=== PATIENT | male | born 1990 ===

== ENCOUNTER 2016-07-02 21:40 | Emergency (ER) | payer SELFPAY ==
[2016-07-02 21:54] VITALS: BP 137/96
[2016-07-02] MEDS ORDERED: BOOSTRIX IM ONE (23:59)
[2016-07-02] MEDS ORDERED: CLEOCIN IM ONE (23:59)
[2016-07-02] MEDS ORDERED: PERCOCET 5/325 PO ONE (23:59)
--- NOTE | 2016-07-02 23:59 | Emergency Department Report ---
- General Chief complaint: Skin/Abscess/Foreign Body Stated complaint: LEFT FOREARM BUMP/SWELLING Time Seen by Provider: 07/02/16 23:30 Source: patient, family Mode of arrival: Ambulatory Limitations: No Limitations - History of Present Illness Initial comments: Patient here reported infected wound on his left forearm. He reports redness swelling and pain 4-6 out of 10. He said similar incident in the past. Denies any nausea vomiting. Denies any fever or chills. Denies any numbness or tingling to extremities. Pain is localized to side of his abscess without any radiation. MD complaint: abscess/boil Onset/Timin -: days(s) Tetanus Up to Date: no Location: LUE Severity: moderate Severity scale (0 -10): 6 Quality: sharp, constant Consistency: constant Improves with: immobilization Worsens with: palpation, movement Context: other (unknown) Associated symptoms: denies other symptoms Treatments Prior to Arrival: OTC topical medication - Related Data Previous Rx's Medication Instructions Recorded Last Taken Type Acetaminophen/Codeine [Tylenol #3] 1 tab PO Q6H PRN #12 tab 07/03/16 Unknown Rx Sulfamethoxazole/Trimethoprim 1 each PO BID #20 tablet 07/03/16 Unknown Rx [Bactrim DS TAB] Allergies Allergy/AdvReac Type Severity Reaction Status Date / Time No Known Allergies Allergy Unverified 07/02/16 22:00 Abscess Boil HPI - HPI Chief Complaint: Skin/Abscess/Foreign Body Stated Complaint: LEFT FOREARM BUMP/SWELLING Time Seen by Provider: 07/02/16 23:30 Home Medications: Previous Rx's Medication Instructions Recorded Last Taken Type Acetaminophen/Codeine [Tylenol #3] 1 tab PO Q6H PRN #12 tab 07/03/16 Unknown Rx Sulfamethoxazole/Trimethoprim 1 each PO BID #20 tablet 07/03/16 Unknown Rx [Bactrim DS TAB] Allergies/Adverse Reactions: Allergies Allergy/AdvReac Type Severity Reaction Status Date / Time No Known Allergies Allergy Unverified 07/02/16 22:00 ED Review of Systems ROS: Stated complaint: LEFT FOREARM BUMP/SWELLING Other details as noted in HPI Comment: All other systems reviewed and negative Constitutional: denies: chills, fever Respiratory: no symptoms reported Cardiovascular: denies: chest pain, palpitations, edema, syncope Musculoskeletal: arthralgia Skin: rash, other (redness, swelling, pain lfa) Neurological: denies: headache ED Past Medical Hx - Past Medical History Previous Medical History?: No - Surgical History Past Surgical History?: No - Family History Family history: no significant - Social History Smoking Status: Heavy Tobacco Smoker Substance Use Type: Alcohol - Medications Home Medications: Home Medications Medication Instructions Recorded Confirmed Last Taken Type Acetaminophen/Codeine [Tylenol #3] 1 tab PO Q6H PRN #12 tab 07/03/16 Unknown Rx Sulfamethoxazole/Trimethoprim 1 each PO BID #20 tablet 07/03/16 Unknown Rx [Bactrim DS TAB] ED Physical Exam - General Limitations: No Limitations General appearance: alert, in no apparent distress - Head Head exam: Present: atraumatic, normocephalic, normal inspection - Eye Eye exam: Present: normal appearance, PERRL, EOMI Pupils: Present: normal accommodation - ENT ENT exam: Present: normal exam, normal orophraynx, mucous membranes moist, TM's normal bilaterally, normal external ear exam - Neck Neck exam: Present: normal inspection, full ROM. Absent: tenderness, meningismus, lymphadenopathy - Respiratory Respiratory exam: Present: normal lung sounds bilaterally. Absent: respiratory distress, chest wall tenderness - Cardiovascular Cardiovascular Exam: Present: regular rate, normal rhythm, normal heart sounds - Extremities Exam Extremities exam: Present: full ROM, tenderness, normal capillary refill. Absent: normal inspection, pedal edema, joint swelling, calf tenderness - Expanded Upper Extremity Exam Left General: Present: other (abscess with cellulitis). Absent: laceration, abrasion , nail injury (#), foreign body Shoulder Exam: Present: normal inspection, full ROM. Absent: tenderness, swelling, abrasion, laceration, ecchymosis, deformity, crepidus, dislocation, erythema, tenderness over AC joint, other Upper Arm exam: Present: normal inspection, full ROM. Absent: tenderness, swelling, abrasion, laceration, ecchymosis, deformity, crepidus, dislocation, erythema, other Elbow exam: Present: normal inspection, full ROM. Absent: tenderness, swelling , abrasion, laceration, ecchymosis, deformity, crepidus, dislocation, erythema, effusion, pain w/ pronation/supination, tenderness over radial head Forearm Wrist exam: Present: full ROM, tenderness, swelling, erythema (erythema area around abscess without any streaking), other (abscess). Absent: abrasion, laceration, ecchymosis, deformity, crepidus, dislocation, tenderness over anatomical snuff box, pain with axial thumb loading Hand Wrist exam: Present: normal inspection, full ROM. Absent: tenderness, swelling, abrasion, laceration, ecchymosis, deformity, crepidus, dislocation, erythema, amputation, nail avulsion, subungual hematoma Neuro motor exam: Present: wrist extension intact, thumb opposition intact, thumb IP flexion intact, thumb adduction intact, fingers 2-5 abduction intact Neurosensory exam: Present: 2-point discrimination, radial nerve intact, ulnar nerve intact, median nerve intact Vascular: Present: normal capillary refill, radial pulse, brachial pulse, ulnar pulse. Absent: vascular compromise, Pallo, pulse deficit radial art, pulse deficit ulnar art, pulse deficit brachial art - Back Exam Back exam: Present: normal inspection, full ROM. 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 Absent: motor sensory deficit - Psychiatric Psychiatric exam: Present: normal affect, normal mood - Skin Skin exam: Present: warm, dry, erythema, other (abscess) - Expanded Skin Exam Expanded Type of lesion: Present: abscess Distribution of rash: LUE Description of rash: Present: size (2x2), swelling, fluctuant, indurated. Absent: discharge ED Course Vital Signs 07/02/16 07/02/16 21:53 21:58 Temperature 98.4 F 98.4 F Pulse Rate 98 H 98 H Respiratory 20 18 Rate Blood Pressure 137/96 Blood Pressure 137/96 [Right] O2 Sat by Pulse 99 99 Oximetry - Reevaluation(s) Reevaluation #1: 07/03/16 01:11 Patient received clindamycin 600 mg IM, Zofran 4 mg ODT and Percocet 5/325 2 tablets in emergency room. - I & D Left Posterior Medial Arm Type of Procedure: Complex Site: left forearm Blade Size: 11 I & D Procedure: betadine prep, sterile drapes applied, sterile dressing applied , gauze wick placed Progress: Tolerated procedure well ED Medical Decision Making - Medical Decision Making ED course: Patient given clindamycin 600 mg IM, Percocet 5/325 mg 2 tablets in emergency room and later Zofran 4 mg ODT for nausea from Percocet. See procedure note for detail and abscess drainage. I discussed with patient that he'll be placed on antibiotic and he needs to take antibiotic as prescribed. I discussed with him I'll put him on pain pills for a couple days and he will need to return to the emergency room 3-4 days after being on antibiotic for packing removal and reevaluation of abscess with cellulitis. He voiced understanding of discharge instruction and to return. Discharged home with prescription for Tylenol 3 and Bactrim DS Critical care attestation.: If time is entered above; I have spent that time in minutes in the direct care of this critically ill patient, excluding procedure time. ED Disposition Clinical Impression: Abscess of forearm, left, Encounter for incision and drainage procedure, Cellulitis of forearm, left Disposition: DISCHARGED TO HOME OR SELFCARE Is pt being admited?: No Does the pt Need Aspirin: No Condition: Stable Instructions: Cellulitis (ED), Abscess Incision and Drainage (ED) Additional Instructions: Please return to emergency room in 3-4 days after taking an antibiotic for abscess recheck and removal of packing Please do not drive or operate heavy machinery while on Tylenol 3 this will cause drowsiness take antibiotic as prescribed. Prescriptions: Acetaminophen/Codeine [Tylenol #3] 1 tab PO Q6H PRN #12 tab PRN Reason: Pain Sulfamethoxazole/Trimethoprim [Bactrim DS TAB] 1 each PO BID #20 tablet Referrals: [facility] [Outside] - 2-3 Days Forms: Accompanied Note, Work/School Release Form(ED)
[2016-07-03] MEDS ORDERED: NACL 0.9% IR ONE (00:17)
[2016-07-03] MEDS ORDERED: XYLOCAINE 1% MPF 5 mL INFILTRATI ONE (00:17)
[2016-07-03] MEDS ORDERED: ZOFRAN ODT ONE (00:30)
[2016-07-03] MEDS ORDERED: ZOFRAN ODT PO ONE (00:33)
== END 2016-07-03 01:20 | disposition home or self-care (01) ==
LOC: ED 21:40
DX: L02.414 Cutaneous abscess of left upper limb (principal); L03.114 Cellulitis of left upper limb; F17.210 Nicotine dependence, cigarettes, uncomplicated
CPT/HCPCS: 90471; 90715; 96372; Q0162